=== PATIENT | male | born 1970 | race American Indian/Alaskan Native ===

== ENCOUNTER 2019-01-24 10:49 | Emergency (ER) | payer OTHER ==
[2019-01-24] MEDS ORDERED: NACL 0.9% 1000 ML 1,000 ML IV ONE ×3 (10:54→12:49)
--- NOTE | 2019-01-24 11:02 | Emergency Department Report ---
HPI - General Time Seen by Provider: 01/24/19 10:53 - HPI HPI: Room 21 The patient is an adult male unknown age brought in by EMS with a chief complaint of altered mental status. Per EMS the patient was [place] a gas station requesting help. The patient then ran down the street away from EMS had to be captured by police. Per EMS patient was very combative and disoriented. The patient stated he needed help and that someone was chasing him. EMS administered Benadryl 50 mg, Haldol 5 mg and Versed 5 mg. Patient improved but was still combative so EMS subsequently gave a second dose of Versed 5 mg. Upon arrival to the ED the patient is heavily sedated, diaphoretic and unresponsive Location: Mental State Duration: [See above] Quality: Altered Severity: [See above] Modifying factors: [see above] Context: [see above] Mode of transportation: [not driving] ED Past Medical Hx - Past Medical History Previous Medical History?: No - Surgical History Past Surgical History?: No - Family History Family history: no significant - Social History Smoking Status: Unknown if ever smoked ED Review of Systems ROS: Stated complaint: DELIRIUM Other details as noted in HPI Comment: Unobtainable due to pts medical conditions Physical Exam - Physical Exam Vital Signs: Laboratory Tests 01/24/19 01/24/19 01/24/19 10:54 10:54 11:05 WBC 9.1 RBC 5.24 H Hgb 17.7 H Hct 51.2 H MCV 98 H MCH 34 H MCHC 35 H RDW 15.2 Plt Count 300 Lymph % (Auto) 11.8 L [place] % (Auto) 4.3 Eos % (Auto) 0.1 Baso % (Auto) 0.3 Lymph # 1.1 L [place] # 0.4 Eos # 0.0 Baso # 0.0 Seg Neutrophils % 83.5 H Seg Neutrophils # 7.6 PT INR APTT Sodium Potassium Chloride Carbon Dioxide Anion Gap BUN Creatinine Estimated GFR BUN/Creatinine Ratio Glucose Calcium Total Bilirubin AST ALT Alkaline Phosphatase Total Creatine Kinase CK-MB (CK-2) CK-MB (CK-2) Rel Index Troponin T NT-Pro-B Natriuret Pep Total Protein Albumin Albumin/Globulin Ratio TSH Free T4 Urine Color Yellow Urine Turbidity Cloudy Urine pH 5.0 Ur Specific [place] 1.029 Urine Protein 30 mg/dl Urine Glucose (UA) Neg Urine Ketones Tr Urine Blood Neg Urine Nitrite Neg Urine Bilirubin Neg Urine Urobilinogen 2.0 Ur Leukocyte Esterase Neg Urine WBC (Auto) 1.0 Urine RBC (Auto) 2.0 Urine Bacteria (Auto) 2+ Urine Mucus 1+ Urine Opiates Screen Presumptive negative Urine Methadone Screen Presumptive negative Ur Barbiturates Screen Presumptive negative Ur Phencyclidine Scrn Presumptive negative Ur Amphetamines Screen Presumptive positive U Benzodiazepines Scrn Presumptive negative Urine Cocaine Screen Presumptive positive U Marijuana (THC) Screen Presumptive positive Drugs of Abuse Note Disclamer Plasma/Serum Alcohol 01/24/19 01/24/19 01/24/19 11:05 11:05 11:05 WBC RBC Hgb Hct MCV MCH MCHC RDW Plt Count Lymph % (Auto) [place] % (Auto) Eos % (Auto) Baso % (Auto) Lymph # [place] # Eos # Baso # Seg Neutrophils % Seg Neutrophils # PT 12.9 INR 1.00 APTT 20.0 L Sodium 149 H Potassium 3.9 Chloride 105.7 Carbon Dioxide 16 L Anion Gap 31 BUN 17 Creatinine 1.8 H Estimated GFR 49 BUN/Creatinine Ratio 9 Glucose 110 H Calcium 10.8 H Total Bilirubin 0.60 AST 41 H ALT 18 Alkaline Phosphatase 70 Total Creatine Kinase 637 H CK-MB (CK-2) 6.3 H CK-MB (CK-2) Rel Index 0.9 Troponin T < 0.010 NT-Pro-B Natriuret Pep 206.4 Total Protein 8.8 H Albumin 5.4 H Albumin/Globulin Ratio 1.6 TSH Free T4 Urine Color Urine Turbidity Urine pH Ur Specific [place] Urine Protein Urine Glucose (UA) Urine Ketones Urine Blood Urine Nitrite Urine Bilirubin Urine Urobilinogen Ur Leukocyte Esterase Urine WBC (Auto) Urine RBC (Auto) Urine Bacteria (Auto) Urine Mucus Urine Opiates Screen Urine Methadone Screen Ur Barbiturates Screen Ur Phencyclidine Scrn Ur Amphetamines Screen U Benzodiazepines Scrn Urine Cocaine Screen U Marijuana (THC) Screen Drugs of Abuse Note Plasma/Serum Alcohol 01/24/19 01/24/19 01/24/19 11:05 11:05 11:05 WBC RBC Hgb Hct MCV MCH MCHC RDW Plt Count Lymph % (Auto) [place] % (Auto) Eos % (Auto) Baso % (Auto) Lymph # [place] # Eos # Baso # Seg Neutrophils % Seg Neutrophils # PT INR APTT Sodium 149 H Potassium 3.9 Chloride 105.2 Carbon Dioxide 14 L Anion Gap 34 BUN 17 Creatinine 1.7 H Estimated GFR 52 BUN/Creatinine Ratio 10 Glucose 109 H Calcium 10.8 H Total Bilirubin AST ALT Alkaline Phosphatase Total Creatine Kinase CK-MB (CK-2) CK-MB (CK-2) Rel Index Troponin T NT-Pro-B Natriuret Pep Total Protein Albumin Albumin/Globulin Ratio TSH 0.736 Free T4 1.24 Urine Color Urine Turbidity Urine pH Ur Specific [place] Urine Protein Urine Glucose (UA) Urine Ketones Urine Blood Urine Nitrite Urine Bilirubin Urine Urobilinogen Ur Leukocyte Esterase Urine WBC (Auto) Urine RBC (Auto) Urine Bacteria (Auto) Urine Mucus Urine Opiates Screen Urine Methadone Screen Ur Barbiturates Screen Ur Phencyclidine Scrn Ur Amphetamines Screen U Benzodiazepines Scrn Urine Cocaine Screen U Marijuana (THC) Screen Drugs of Abuse Note Plasma/Serum Alcohol < 0.01 01/24/19 14:02 WBC RBC Hgb Hct MCV MCH MCHC RDW Plt Count Lymph % (Auto) [place] % (Auto) Eos % (Auto) Baso % (Auto) Lymph # [place] # Eos # Baso # Seg Neutrophils % Seg Neutrophils # PT INR APTT Sodium 148 H Potassium 4.1 Chloride 114.0 H Carbon Dioxide 18 L Anion Gap 20 BUN 17 Creatinine 1.3 Estimated GFR > 60 BUN/Creatinine Ratio 13 Glucose 87 Calcium 8.4 D Total Bilirubin AST ALT Alkaline Phosphatase Total Creatine Kinase CK-MB (CK-2) CK-MB (CK-2) Rel Index Troponin T NT-Pro-B Natriuret Pep Total Protein Albumin Albumin/Globulin Ratio TSH Free T4 Urine Color Urine Turbidity Urine pH Ur Specific [place] Urine Protein Urine Glucose (UA) Urine Ketones Urine Blood Urine Nitrite Urine Bilirubin Urine Urobilinogen Ur Leukocyte Esterase Urine WBC (Auto) Urine RBC (Auto) Urine Bacteria (Auto) Urine Mucus Urine Opiates Screen Urine Methadone Screen Ur Barbiturates Screen Ur Phencyclidine Scrn Ur Amphetamines Screen U Benzodiazepines Scrn Urine Cocaine Screen U Marijuana (THC) Screen Drugs of Abuse Note Plasma/Serum Alcohol Physical Exam: GENERAL: The patient is well-developed well-nourished male lying on stretcher diaphoretic and unresponsive. [] HEENT: Normocephalic. Atraumatic. Pupils 2 mm bilaterally. Patient has moist mucous membranes. NECK: Supple. Trachea midline CHEST/LUNGS: Clear to auscultation. There is no respiratory distress noted. HEART/CARDIOVASCULAR: Regular. There is tachycardia. There is no gallop rub or murmur. ABDOMEN: Abdomen is soft, nontender. Patient has normal bowel sounds. There is no abdominal distention. SKIN: There is no rash. There is no edema. There is diaphoresis. NEURO: The patient is unresponsive/heavily sedated MUSCULOSKELETAL: There is no evidence of acute injury. ED Course - Reevaluation(s) Reevaluation #1: 01/24/19 15:39 Patient anal 4 now. Patient not in any acute distress. Patient states she missed a smoking weed and thinks this must at least with amphetamines and cocaine. Patient states he ran for help because he felt as though there were snakes crawling all over him. Patient without complaints currently ED Medical Decision Making - Lab Data Result diagrams: 01/24/19 11:05 01/24/19 14:02 Laboratory Tests 01/24/19 01/24/19 01/24/19 10:54 10:54 11:05 WBC 9.1 RBC 5.24 H Hgb 17.7 H Hct 51.2 H MCV 98 H MCH 34 H MCHC 35 H RDW 15.2 Plt Count 300 Lymph % (Auto) 11.8 L [place] % (Auto) 4.3 Eos % (Auto) 0.1 Baso % (Auto) 0.3 Lymph # 1.1 L [place] # 0.4 Eos # 0.0 Baso # 0.0 Seg Neutrophils % 83.5 H Seg Neutrophils # 7.6 PT INR APTT Sodium Potassium Chloride Carbon Dioxide Anion Gap BUN Creatinine Estimated GFR BUN/Creatinine Ratio Glucose Calcium Total Bilirubin AST ALT Alkaline Phosphatase Total Creatine Kinase CK-MB (CK-2) CK-MB (CK-2) Rel Index Troponin T NT-Pro-B Natriuret Pep Total Protein Albumin Albumin/Globulin Ratio TSH Free T4 Urine Color Yellow Urine Turbidity Cloudy Urine pH 5.0 Ur Specific [place] 1.029 Urine Protein 30 mg/dl Urine Glucose (UA) Neg Urine Ketones Tr Urine Blood Neg Urine Nitrite Neg Urine Bilirubin Neg Urine Urobilinogen 2.0 Ur Leukocyte Esterase Neg Urine WBC (Auto) 1.0 Urine RBC (Auto) 2.0 Urine Bacteria (Auto) 2+ Urine Mucus 1+ Urine Opiates Screen Presumptive negative Urine Methadone Screen Presumptive negative Ur Barbiturates Screen Presumptive negative Ur Phencyclidine Scrn Presumptive negative Ur Amphetamines Screen Presumptive positive U Benzodiazepines Scrn Presumptive negative Urine Cocaine Screen Presumptive positive U Marijuana (THC) Screen Presumptive positive Drugs of Abuse Note Disclamer Plasma/Serum Alcohol 01/24/19 01/24/19 01/24/19 11:05 11:05 11:05 WBC RBC Hgb Hct MCV MCH MCHC RDW Plt Count Lymph % (Auto) [place] % (Auto) Eos % (Auto) Baso % (Auto) Lymph # [place] # Eos # Baso # Seg Neutrophils % Seg Neutrophils # PT 12.9 INR 1.00 APTT 20.0 L Sodium 149 H Potassium 3.9 Chloride 105.7 Carbon Dioxide 16 L Anion Gap 31 BUN 17 Creatinine 1.8 H Estimated GFR 49 BUN/Creatinine Ratio 9 Glucose 110 H Calcium 10.8 H Total Bilirubin 0.60 AST 41 H ALT 18 Alkaline Phosphatase 70 Total Creatine Kinase 637 H CK-MB (CK-2) 6.3 H CK-MB (CK-2) Rel Index 0.9 Troponin T < 0.010 NT-Pro-B Natriuret Pep 206.4 Total Protein 8.8 H Albumin 5.4 H Albumin/Globulin Ratio 1.6 TSH Free T4 Urine Color Urine Turbidity Urine pH Ur Specific [place] Urine Protein Urine Glucose (UA) Urine Ketones Urine Blood Urine Nitrite Urine Bilirubin Urine Urobilinogen Ur Leukocyte Esterase Urine WBC (Auto) Urine RBC (Auto) Urine Bacteria (Auto) Urine Mucus Urine Opiates Screen Urine Methadone Screen Ur Barbiturates Screen Ur Phencyclidine Scrn Ur Amphetamines Screen U Benzodiazepines Scrn Urine Cocaine Screen U Marijuana (THC) Screen Drugs of Abuse Note Plasma/Serum Alcohol 01/24/19 01/24/19 11:05 11:05 WBC RBC Hgb Hct MCV MCH MCHC RDW Plt Count Lymph % (Auto) [place] % (Auto) Eos % (Auto) Baso % (Auto) Lymph # [place] # Eos # Baso # Seg Neutrophils % Seg Neutrophils # PT INR APTT Sodium Potassium Chloride Carbon Dioxide Anion Gap BUN Creatinine Estimated GFR BUN/Creatinine Ratio Glucose Calcium Total Bilirubin AST ALT Alkaline Phosphatase Total Creatine Kinase CK-MB (CK-2) CK-MB (CK-2) Rel Index Troponin T NT-Pro-B Natriuret Pep Total Protein Albumin Albumin/Globulin Ratio TSH 0.736 Free T4 1.24 Urine Color Urine Turbidity Urine pH Ur Specific [place] Urine Protein Urine Glucose (UA) Urine Ketones Urine Blood Urine Nitrite Urine Bilirubin Urine Urobilinogen Ur Leukocyte Esterase Urine WBC (Auto) Urine RBC (Auto) Urine Bacteria (Auto) Urine Mucus Urine Opiates Screen Urine Methadone Screen Ur Barbiturates Screen Ur Phencyclidine Scrn Ur Amphetamines Screen U Benzodiazepines Scrn Urine Cocaine Screen U Marijuana (THC) Screen Drugs of Abuse Note Plasma/Serum Alcohol < 0.01 - EKG Data -: EKG Interpreted by Me EKG shows normal: sinus rhythm Rate: tachycardia (123 bpm) - EKG Data When compared to previous EKG there are: previous EKG unavailable Interpretation: [facility] - Radiology Data Radiology results: report reviewed (CT head, chest x-ray), image reviewed (chest x-ray, CT head) interpreted by me: Chest x-ray-no focal infiltrates, no pneumothorax [address] [address] XRay Report Signed Patient: DAVE PRESLEY MR#: [id number] 2 : 1970 Acct:[id number] Age/Sex: 48 / M ADM Date: 01/24/19 Loc: ED Attending Dr: Ordering Physician: JUNG WAY MD Date of Service: 01/24/19 Procedure(s): XR chest 1V ap Accession Number(s): [id number] cc: JUNG WAY MD Fluoro Time In Minutes: CHEST 1 VIEW 11:04 AM INDICATION / CLINICAL INFORMATION: Altered mental status and hypoxia. COMPARISON: None available. FINDINGS: SUPPORT DEVICES: None. HEART / MEDIASTINUM: The heart size and pulmonary vasculature are normal. LUNGS / PLEURA: No significant pulmonary or pleural abnormality. No pneumothorax. ADDITIONAL FINDINGS: No significant additional findings. IMPRESSIO N: No acute findings. Signer Name: Ankit Morales MD Signed: 01/24/2019 11:44 AM Workstation Name: [id number] Transcribed By: RT Dictated By: Ankit Morales MD Electronically Authenticated By: Ankit Morales MD Signed Date/Time: 01/24/[address] [address] Cat Scan Report Signed Patient: DAVE PRESLEY MR#: [id number] 2 : 1970 Acct:[id number] Age/Sex: 48 / M ADM Date: 01/24/19 Loc: ED Attending Dr: Ordering Physician: JUNG WAY MD Date of Service: 01/24/19 Procedure(s): CT head/brain wo con Accession Number(s): [id number] cc: JUNG WAY MD CT scan of the brain: Please note the these are the same set of images and in the patients name "emergency medical" since the name was not known when images were acquired. There is also a similar report under the name of "e[facility]". HISTORY: Change in mental status TECHNIQUE: Routine CT head without contrast. All CT scans at this location are performed using CT dose reduction for ALARA by means of automated exposure control. COMPARISON: None. FINDINGS: BRAIN / INTRACRANIAL CONTENTS: No acute hemorrhage, mass effect, midline shift, hydrocephalus, or acute, large territorial infarct. Mild cortical involution is seen. No significa nt white matter abno rmality. CRANIOCERVICAL JUNCTION: No significant abnormality. ORBITS: No significant abnormality of visualized orbits. SINUSES / MASTOIDS: Mucosal thickening is seen in the right maxillary sinus. ADDITIONAL FINDINGS: None. IMPRESSION: 1. I do not see an acute parenchymal lesion. Signer Name: Rosmery Whatley MD Signed: 01/24/2019 12:23 PM Workstation Name: [id number] Transcribed By: BS Dictated By: Rosmery Ac MD Electronically Authenticated By: Rosmery Ac MD Signed Date/Time: 01/24/19 1223 DD/ 1215 TD/TT: - Differential Diagnosis substance abuse, psychosis NOS Critical care attestation.: If time is entered above; I have spent that time in minutes in the direct care of this critically ill patient, excluding procedure time. ED Disposition Clinical Impression: Polysubstance abuse, Acute alteration in mental status Disposition: DC-01 TO HOME OR SELFCARE Is pt being admited?: No Does the pt Need Aspirin: No Condition: Stable Additional Instructions: Return to the emergency department immediately should you develop worsening symptoms, fever, inability to tolerate food or liquid or any other concerns. Referrals: NKECHI MORRIS MD [Primary Care Provider] - 3-5 Days [facility] [Outside] - 3-5 Days Time of Disposition: 15:41
[2019-01-24 11:25] LABS: Basophils % (Auto) 0.3 % (0.0-1.8); Eosinophils % (Auto) 0.1 % (0.0-4.3); Hematocrit 51.2 % (35.5-45.6); Hemoglobin 17.7 gm/dl (11.8-15.2); Lymphocytes # (Auto) 1.1 K/mm3 (1.2-5.4); Lymphocytes % (Auto) 11.8 % (13.4-35.0); Mean Corpuscular HGB Conc 35 % (32-34); Mean Corpuscular Volume 98 fl (84-94); Monocytes # (Auto) 0.4 K/mm3 (0.0-0.8); Monocytes % (Auto) 4.3 % (0.0-7.3); Platelet Count 300 K/mm3 (140-440); Red Blood Count 5.24 M/mm3 (3.65-5.03); Red Cell Distribution Width 15.2 % (13.2-15.2)
[2019-01-24 11:37] LABS: Bacteria,Urine 2+ /HPF (Negative); Bilirubin,Urine NEG (Negative); Blood,Urine NEG (Negative); Color,Urine Yellow (Yellow); Mucus,Urine 1+ /HPF
[2019-01-24 11:41] LABS: Creatine Kinase MB 6.3 ng/mL (0.0-4.0)
[2019-01-24 11:41] LABS: Benzodiazepines Screen,Urine PRESUMPTIVE NEGATIVE; Methadone Screen,Urine PRESUMPTIVE NEGATIVE; Opiate Screen,Urine PRESUMPTIVE NEGATIVE
[2019-01-24 11:43] LABS: Albumin 5.4 g/dL (3.9-5); Calcium 10.8 mg/dL (8.4-10.2)
--- NOTE | 2019-01-24 11:48 | XRay Report ---
CHEST 1 VIEW 11:04 AM INDICATION / CLINICAL INFORMATION: Altered mental status and hypoxia. COMPARISON: None available. FINDINGS: SUPPORT DEVICES: None. HEART / MEDIASTINUM: The heart size and pulmonary vasculature are normal. LUNGS / PLEURA: No significant pulmonary or pleural abnormality. No pneumothorax. ADDITIONAL FINDINGS: No significant additional findings. IMPRESSION: No acute findings. Signer Name: Ankit Morales MD Signed: 01/24/2019 11:44 AM Workstation Name: [id number]
[2019-01-24 11:56] LABS: Free T4 (Free Thyroxine) 1.24 ng/dL (0.76-1.46)
[2019-01-24 11:56] LABS: Amphetamine Screen,Urine PRESUMPTIVE POSITIVE; Cannabinoid Screen,Urine PRESUMPTIVE POSITIVE; Cocaine Screen,Urine PRESUMPTIVE POSITIVE
--- NOTE | 2019-01-24 12:28 | Cat Scan Report ---
CT scan of the brain: Please note the these are the same set of images and in the patients name "emergency medical" since t he name was not known when images were acquired. There is also a similar report under the name of "e [facility]". HISTORY: Change in mental status TECHNIQUE: Routine CT head without contrast. All CT scans at this location are performed using CT dos e reduction for ALARA by means of automated exposure control. COMPARISON: None. FINDINGS: BRAIN / INTRACRANIAL CONTENTS: No acute hemorrhage, mass effect, midline shift, hydrocephalus, or acu te, large territorial infarct. Mild cortical involution is seen. No significant white matter abnormal ity. CRANIOCERVICAL JUNCTION: No significant abnormality. ORBITS: No significant abnormality of visualized orbits. SINUSES / MASTOIDS: Mucosal thickening is seen in the right maxillary sinus. ADDITIONAL FINDINGS: None. IMPRESSION: 1. I do not see an acute parenchymal lesion. Signer Name: Rosmery Whatley MD Signed: 01/24/2019 12:23 PM Workstation Name: [id number]
[2019-01-24 13:46] LABS: Calcium 10.8 mg/dL (8.4-10.2)
[2019-01-24 14:32] LABS: BUN/Creatinine Ratio 13; Blood Urea Nitrogen 17 mg/dL (9-20); Calcium 8.4 mg/dL (8.4-10.2); Hemolysis Index 13
[2019-01-24 15:37] VITALS: BP 129/94
== END 2019-01-24 15:40 | disposition home or self-care (01) ==
LOC: ED 10:49
DX: R41.82 Altered mental status, unspecified (principal); F19.10 Other psychoactive substance abuse, uncomplicated
CPT/HCPCS: 36415; 70450; 71045; 80048; 80053; 80307; 81001; 82550; 82553; 83880; 84439; 84443; 84484; 85025; 85610; 85730; 93005; 93010; 96360; 96361; 99285; G0480; J7030; 80320

== ENCOUNTER 2019-05-07 10:32 | Outpatient (CLI) | payer OTHER ==
--- NOTE | 2019-05-07 11:40 | XRay Report ---
LUMBOSACRAL SPINE, 3 VIEWS INDICATION: Low back pain. COMPARISON: None. IMPRESSION: There is minimal levocurvature to the lumbar spine. Normal height and alignment on the l ateral image. Mild multilevel degenerative endplate changes are noted throughout the lumbar region. M ild diffuse facet arthropathy. No evidence for fracture or bone lesion. The sacrum and SI joints ar e unremarkable. LEFT KNEE, 2 VIEWS INDICATION: LEFT KNEE PAIN. COMPARISON: None. IMPRESSION: No acute osseous or soft tissue abnormality. No significant DJD. Signer Name: Jayesh Britton Jr, MD Signed: 05/07/2019 11:36 AM Workstation Name: [id number]
== END 2019-05-07 10:33 | disposition home or self-care (01) ==
LOC: XRAY 10:32
PROVIDERS: ATTEND Internal Medicine
DX: M54.9 Dorsalgia, unspecified (principal); M25.562 Pain in left knee
CPT/HCPCS: 72100